=== PATIENT | female | born 1955 | race Caucasian/White ===

== ENCOUNTER 2020-08-16 14:22 | Emergency (ER) | payer OTHER ==
[2020-08-16 14:33] VITALS: BP 138/84; PULSE 108; BMI 34.9
[2020-08-16] MEDS ORDERED: DIPHTH,PERTUSS(ACELL),TET 0.5 ML DISP.SYRIN IM ONE ×2 (14:54→15:08)
== END 2020-08-16 15:13 | disposition home or self-care (01) ==
LOC: JERFT 14:22
PROC: 0PSVXZZ Reposition Left Finger Phalanx, External Approach (ICD-10-PCS; principal; 2020-08-16)
PROC: 3E0234Z Introduction of Serum, Toxoid and Vaccine into Muscle, Percutaneous Approach (ICD-10-PCS; 2020-08-16)
DX: S63.285A Dislocation of proximal interphalangeal joint of left ring finger, initial encounter (principal); S60.512A Abrasion of left hand, initial encounter; S63.257A Unspecified dislocation of left little finger, initial encounter
CPT/HCPCS: 73130-TC-LT-FY; 90715; 99284-25